=== PATIENT | male | born 1985 | race Hispanic/Latino ===

== ENCOUNTER 2020-08-28 06:01 | Observation (INO) | payer OTHER ==
[2020-08-26 14:03] LABS: BASOPHILS % 0.4 % (0.0-1.0); EOSINOPHILS # (AUTO) 0.1 (0.0-0.4); EOSINOPHILS % 1.3 % (0.0-6.0); HEMATOCRIT 39.5 % (38.2-49.6); HEMOGLOBIN 12.9 g/dL (14.0-18.0); LYMPHOCYTES # (AUTO) 1.9 (1.0-3.2); LYMPHOCYTES % 36.1 % (18.0-39.1); MEAN CORPUSCULAR HEMOGLOBIN 27.7 pg (28-32); MEAN CORPUSCULAR HGB CONC 32.7 g/dL (31-35); MEAN CORPUSCULAR VOLUME 84.9 fL (81-99); MONOCYTES # (AUTO) 0.3 (0.2-0.8); NEUTROPHILS % 55.8 % (38.7-80.0); PLATELET COUNT 256 x10e3/uL (140-360); RED BLOOD COUNT 4.65 x10e6/uL (4.3-5.7); RED CELL DISTRIBUTION WIDTH 13.2 % (11.7-14.4)
[2020-08-26 14:11] LABS: INR 0.91; PROTHROMBIN TIME 12.8 seconds (11.9-14.5)
[2020-08-26 14:12] LABS: PARTIAL THROMBOPLASTIN TIME 26.1 seconds (23.8-35.5)
[2020-08-26 14:17] LABS: BLOOD UREA NITROGEN 16 mg/dL (7-26); BUN/CREATININE RATIO 19 (6-25); CARBON DIOXIDE 26 mmol/L (22-29); CHLORIDE 108 mmol/L (98-107); CREATININE, SERUM 0.84 mg/dL (0.72-1.25); EST GLOMERULAR FILTRATION RATE > 60 ML/MIN (60-); GLUCOSE 97 mg/dL (74-118); SODIUM 142 mmol/L (136-145)
[~2020-08-28] VITALS: Ht 177.8 cm; Wt 106.6 kg
[~2020-08-28 06:01] MED LIST: FISH OIL 1,0001 EAC2 PO; GABAPENTIN300 MG PO; LOSARTAN POTASS25 MG PO; MELOXICAM7.5 MG PO; TIZANIDINE HCL4 MG PO; TYLENOL # 31 EA PO
[2020-08-28] MEDS ORDERED: CEFAZOLIN SOD 1 GM/NS 50ML 100 ML IV ONE (06:38)
[2020-08-28] MEDS ORDERED: BUPIVACAINE 0.5%/EPI 30 ML SDV INJ ONE (06:47)
[2020-08-28] MEDS ORDERED: VANCOMYCIN HCL 1 GM VIAL ONE (06:47)
[2020-08-28] MEDS ORDERED: THROMBIN FOR SOLN 5,000 UNIT VIAL ONE (06:47)
[2020-08-28] MEDS ORDERED: ACETAMINOPHEN 1000 MG/100 ML 100 ML IV ONE (07:40)
[2020-08-28] MEDS ORDERED: LIDOCAINE HCL (LTA) 4 ML SOLN ONE (07:41)
[2020-08-28] MEDS ORDERED: IBUPROFEN 800MG/ 200ML 200 ML IV ONE (07:41)
[2020-08-28] MEDS ORDERED: ONDANSETRON HCL INJ 2MG/ML 2ML 2 MG/ML VIAL IV PRN (09:45)
[2020-08-28] MEDS ORDERED: ACETAMINOPHEN 325 MG TAB PO PRN (09:45)
[2020-08-28] MEDS ORDERED: MAGNESIUM/ALUMINUM/SIMETHICONE 30 ML UDC PO PRN (09:45)
[2020-08-28] MEDS ORDERED: HYDROMORPHONE 2MG/ML 2 MG/ML ML IV PRN ×2 (09:45)
[2020-08-28] MEDS ORDERED: CARISOPRODOL 350 MG TAB PO PRN (09:45)
[2020-08-28] MEDS ORDERED: OXYCODONE/ACETAMINOPHEN 5-325 1 EACH TABLET PO PRN (09:45)
[2020-08-28] MEDS ORDERED: PROMETHAZINE HCL (IM) 25 MG/ML VIAL IM PRN (09:45)
[2020-08-28] MEDS ORDERED: MORPHINE SULFATE 5 MG/ML VIAL IM PRN (09:45)
[2020-08-28] MEDS ORDERED: HYDROCODON-ACE1 EA12 PO (09:46)
[2020-08-28] MEDS ORDERED: FENTANYL CITRATE/PF 100MCG/2 ML INJ ONE (10:19)
[2020-08-28 11:58] VITALS: BP 124/79
[2020-08-28] MEDS ORDERED: TIZANIDINE HCL 4 MG TAB PO PRN (12:00)
[2020-08-28] MEDS: LACTATED RINGER'S 1,000 ML IV SCH ×2 (12:48→17:30)
[2020-08-28 12:52] VITALS: BP 124/79
[2020-08-28] MEDS: CEFAZOLIN SOD 1 GM/NS 50ML 50 ML IV SCH ×2 (13:10→21:40)
[2020-08-28 15:43] VITALS: BP 123/87
[2020-08-28] MEDS ORDERED: PROPOFOL IV EMULSION 10 MG/ML 20 ML VIAL ONE (17:14)
[2020-08-28] MEDS ORDERED: NEOSTIGMINE 1 MG/ML 10ML VIAL ONE (17:14)
[2020-08-28] MEDS ORDERED: LIDOCAINE HCL 2% LOCAL INJ 5 ML SDV VIAL INJ ONE (17:14)
[2020-08-28] MEDS ORDERED: LIDOCAINE HCL 2% JELLY 5 ML TUBE ONE (17:14)
[2020-08-28] MEDS ORDERED: POVIDONE IODINE 0.05% 0.05 % ML PO ONE (17:14)
[2020-08-28] MEDS ORDERED: SEVOFLURANE INHAL SOLN 250 ML PEN BTL ONE (17:14)
[2020-08-28] MEDS ORDERED: GLYCOPYRROLATE INJ 0.2 MG/ML VIAL ONE (17:14)
[2020-08-28] MEDS ORDERED: ROCURONIUM BROMIDE 10 MG/ML 5ML VIAL IV ONE (17:14)
[2020-08-28] MEDS ORDERED: ONDANSETRON HCL INJ 2MG/ML 2ML 2 MG/ML VIAL ONE (17:14)
[2020-08-28] MEDS ORDERED: DEXAMETHASONE SOD PHOS INJ 4 MG/ML VIAL ONE (17:14)
[2020-08-28 20:00] VITALS: BP 103/58
[2020-08-28 20:39] VITALS: BP 103/58
[2020-08-28] MEDS ORDERED: ZOLPIDEM TARTRATE 5 MG TAB PO PRN (21:00)
[2020-08-28] MEDS ORDERED: GABAPENTIN 300 MG CAP PO SCH (21:00)
[2020-08-29] VITALS: BP 111/56
[2020-08-29 04:00] VITALS: BP 121/82
[2020-08-29] MEDS: CEFAZOLIN SOD 1 GM/NS 50ML 50 ML IV SCH (06:01)
[2020-08-29 07:45] VITALS: BP 129/77
[2020-08-29 08:20] VITALS: BP 129/77
[2020-08-29] MEDS ORDERED: LOSARTAN POTASSIUM 25 MG TAB PO SCH (09:00)
== END 2020-08-29 10:09 | disposition home or self-care (01) ==
LOC: OR 06:01 → EDSEX 08:30 → PACU V 10:29 → MED/SURG 11:58
PROVIDERS: ADMIT Neurological Surgery; ATTEND Neurological Surgery
DX: M51.17 Intervertebral disc disorders with radiculopathy, lumbosacral region (principal); I10 Essential (primary) hypertension; Z01.810 Encounter for preprocedural cardiovascular examination; Z01.812 Encounter for preprocedural laboratory examination; Z01.818 Encounter for other preprocedural examination; Z20.822 Contact with and (suspected) exposure to COVID-19
CPT/HCPCS: 36415; 63047; 71046; 72020; 80048; 85025; 85610; 85730; 86850; 86900; 88304; 93005; 96361; G0378 ×2; J0131; J0690 ×2; J1100; J2001 ×2; J2405; J2704; J2710; J3010; J3370; J7121; U0002; 88311; 96360